=== PATIENT | female | born 1995 | race Caucasian/White ===

== ENCOUNTER 2023-10-28 02:42 | Emergency (ER) | payer OTHER, SELFPAY ==
[2023-10-28 02:49] VITALS: BP 106/72; PULSE 75; RESP 16; TEMP 37; O2SAT 99; BMI 25.8
--- NOTE | 2023-10-28 03:08 | ED_ITS ---
HPI - General Adult General Chief complaint: Headache/Migraine Stated complaint: Headache Time Seen by Provider: 10/28/23 02:45 Source: patient Mode of arrival: ambulatory Limitations: no limitations History of Present Illness HPI narrative: 28-year-old female presents to the emergency department for evaluation of headache with nausea and vomiting. Headache started about a day and half ago, frontal, gradual onset, evolved over about an hour or so. Initially tried taking some ibuprofen which helped for quite a while, but headache returned. Tried some Tylenol and improved somewhat. Over the last few hours, has evolved to nausea and then vomiting. Vomited at home and did have some leftover Zofran, tried taking that but is still retching. Headache is still in the frontal area, radiates into the right eye somewhat. No trauma or injury. No vision changes but does have some photophobia. No focal neurological changes, history of seizures, anticoagulant use. No neurological changes otherwise, numbness, tingling. Triage notes reviewed. No prior history of migraines, gets a few headaches per year but typically will go away with Tylenol and/or ibuprofen. No pertinent travel, no fever, neck stiffness or myalgias. Past medical history notable for anxiety, only home medication is fluoxetine, no recent dose adjustments. No known drug allergies. Nonsmoker. ROS notable for the HEENT symptoms as described above only, otherwise denies times 12 systems. Related Data Home Medications ?Medication ?Instructions ?Recorded ?Confirmed fluoxetine .ROUTE 10/28/23 Allergies Allergy/AdvReac Type Severity Reaction Status Date / Time No Known Drug Allergies Allergy Verified 10/28/23 02:53 [facility] Social History Smoking Status: Never smoker Non-prescribed substance use: denies use Exam Const: Vital Signs, click to edit/add: Vital Signs - 24 hr 10/28/23 02:49 Temperature 98.6 F Pulse Rate [Pulse Oximeter] 75 Respiratory Rate 16 Blood Pressure [Ri ght Upper Arm] 106/72 Pulse Oximetry 99 Oxygen Delivery Me thod Room Air Documenting provider has reviewed patient's vital signs: yes Common n ormals: no apparent distress General appearance: cooperative and well kempt HENMT: Common normals: normocephalic, TM's normal bilaterally, moist oral mucous membranes, oropharynx normal and dentition normal Head and scalp: normocephalic Face and sinus: normal facial exam Tympanic membrane: TM's normal bilaterally Throat: posterior oropharynx normal Eye: Common normals: PERRL, EOMs intact bilaterally and no papilledema Pupil: PERRL Direct Ophthalmoscopy: no papilledema Neck & C-Spine: Common normals: full ROM, no lymphadenopathy and no meningeal signs Resp: Common normals: normal respiratory effort, no use of accessory muscles and clear to auscultation bilaterally Effort & inspection: able to speak in complete sentences Auscultation: clear to auscultation bilaterally Cardio: Common normals: regular rate, regular rhythm, S1 normal heart sound, S2 normal heart sound and no murmurs Rate: regular rate Rhythm: regular rhythm Heart sounds: S1 normal and S2 normal Extremity: Common normals: normal to inspection Neuro: Common normals: CN's II-XII intact bilaterally, moves all extremities and no focal motor deficits Meningeal signs: no meningeal signs Speech: speech normal Psych: Appearance: well kempt Attitude: engaged Activity/motor behavior: appropriate eye contact Insight: insight good Judgement: judgment good Skin: Common normals: no rashes or lesions noted General skin exam: no rashes or lesions noted Course Course ED Course: 28-year-old female with features of common migraine. No red flags for intracranial hemorrhage, meningitis, seizure, stroke or other major intracranial abnormality. Recommend 1 L normal saline, 15 Toradol, 10 Reglan, 25 Benadryl. Will then reassess. Counseled patient that headache will likely not go away completely but should be somewhat better with these medications and often will then resolve over another few hours at home with rest. Do not recommend blood work or imaging based on benign exam and history. She was agreeable to this, await clinical response. Reevaluation(s) Time of Reevaluation #1: 03:59 Reevaluation #1: Headache mostly gone and nausea completely resolved after interventions above. Patient feels like she could go home and rest. No other new features reported. Discussed Tylenol and ibuprofen to continue through today, rest, fluids. Alarm symptoms reviewed that would warrant ED presentation, she verbalizes understand ing and agreement of plan. Follow-up with primary care if recurrent episodes for discussion of long-term management plan. Vital Signs Vital signs: Initial Vital Signs Temperature 98.6 F 10/28/23 02:49 Temperature Source Temporal Artery Scan 10/28/23 02:49 Pulse Rate 75 10/28/23 02:49 Respiratory Rate 16 10/28/23 02:49 Blood Pressure 106/72 10/28/23 02:49 Blood Pressure Mean 83 10/28/23 02:49 Blood Pressure Position Sitting 10/28/23 02:49 Pulse Oximetry 99 10/28/23 02:49 Oxygen Delivery Method Room Air 10/28/23 02:49 Vital Signs Temperature 98.6 F 10/28/23 02:49 Pulse Rate 75 10/28/23 02:49 Respiratory Rate 16 10/28/23 02:49 Blood Pressure 106/72 10/28/23 02:49 Pulse Oximetry 99 10/28/23 02:49 Oxygen Delivery Method Room Air 10/28/23 02:49 Temperature 98.6 F 10/28/23 02:49 Pulse Rate 75 10/28/23 02:49 Respiratory Rate 16 10/28/23 02:49 Blood Pressure 106/72 10/28/23 02:49 Pulse Oximetry 99 10/28/23 02:49 Oxygen Delivery Method Room Air 10/28/23 02:49 Medications Administered Medications: Generic Name Dose Route Start Last Admin Trade Name Freq PRN Reason Stop Dose Admin Sodium Chloride 1,000 mls @ 1,000 mls/hr 10/28/23 03:05 10/28/23 03:40 0.9 % Sodium Chloride 1000 Ml IV 10/28/23 04:04 1,000 mls/hr .Q1H DEANA Administration Metoclopramide HCl 10 mg/ 102 mls @ 306 mls/hr 10/28/23 03:05 10/28/23 03:40 Sodium Chloride IVPB 10/28/23 03:06 306 mls/hr ONCE ONE Administration Diphenhydramine HCl 25 mg/ 100.5 mls @ 402 mls/hr 10/28/23 03:05 10/28/23 03:40 Sodium Chloride IVPB 10/28/23 03:06 402 mls/hr ONCE ONE Administration Ketorolac Tromethamine 15 mg 10/28/23 03:05 10/28/23 03:40 Ketorolac 15 Mg/Ml Inj IVP 10/28/23 03:06 15 mg ONCE ONE Administration Discharge Plan Discharge Clinical Impression: Migraine Patient Disposition: Home w/ Parent or Adult Condition: Improved Instructions: Migraine Headache (ED) Additional Instructions: I am glad that things are improving after medications. You are due for your next dose of Tylenol at 7:30 a.m. in the morning. You are eligible for more ibuprofen at 9:00 a.m.. Continue these medications throughout the next 24 hours to prevent rebound headache. Try to rest this morning and get moderate amount of fluids and try to emphasize salty foods throughout today. It is okay to repeat the Zofran later this morning if needed, but will likely not be necessary. Come back to the emergency department if you are unable to hold down liquids for over 24 hours, have high fever, neck stiffness or other neurological changes associated with a headache. Activity Level: Activity as Tolerated Discharge Diet: Regular Prescriptions: No Action fluoxetine .ROUTE Stand Alone Forms: MyHealth Info Instructions
--- OUTSIDE RECORDS SUMMARY | 2023-10-28 03:38 | XMS_ITS | Clinical Summary ---
Author Organization [place] Address [address] [place] [id number] Care Team Providers Care Toaster Element Repairer Name Role Phone No Ref-Primary, Physician Primary Care Provider Amelia Crump CNM Unavailable [phone] Allergies Active Allergy Reactions Criticality Noted Date Comments Nuts Hives,Itching 09/15/2012 Annotation: tree nuts cause throat swelling Nuts Hives,Itching,Shortn ess Of Breath High 11/04/2014 Medications Medication Sig Dispensed Refills Start Date End Date Status FLUoxetine (PROZAC) 20 MG capsuleIndications:Mix ed anxiety and depressive disorder Take 1 capsule (20 mg) by mouth daily 90 capsule 3 03/06/2023 Active levonorgestrel-ethinyl estradiol (AVIANE) 0.1-20 MG-MCG tabletIndications:Enco unter for initial prescription of contraceptive pills Take 1 tablet by mouth daily 84 tablet 3 10/20/2023 Active Active Problems Problem Noted Date Diagnosed Date Indication for care in labor or delivery 023 Depression during , antepartum 02/26/20 22 Overview: - Stable on Wellbutrin x5 yrs - Does not see a therapist Encounter for supervision of normal first in first trimester 02/25/2022 Overview: Clinic/Hospital: [facility] Partner Name: [facility] Ultrasound predicts sex: Childrens names/ages: Previous labor experiences: Waterbirth (interest, declined, ineligible): Level of education/occupation: TEMPLE MEAT CUTTER at [employer] Pertinent History: PP contraception: Hx PPD/Depression/Anxiety: yes, depression, stable on Wellbutrin x5yrs Ed: Plans for labor pain management: Planning to use pain interventions as needed, would like to avoid epidural. 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 Hematuria Overview: Created by Conversion Created by Conversion Resolved Problems Problem Noted Date Diagnosed Date Resolved Date Major depression, single episode 01/22/2019 06/06/2022 Overview: Created by Conversion Created by Conversion Created by Conversion Created by Conversion Created by Conversion Sore Throat 06/06/2022 Overview: Created by Conversion Encounters Date Type Department Care Team Description 10/20/2023 [facility] [address] [address] Crump, Amelia A, CNM Encounter for initial prescription of contraceptive pills (Primary Dx) from Last 3 Months Immunizations Name Administration Dates Next Due COVID-19 MONOVALENT 12+ (Pfizer) 01/01/2021,03/25,03/29/2020 DTaP, Unspecified 04/16/1999, 6,1994,10/22,1994 Flu, Unspecified 01/06/2020, 9,12/26/2014,04/30 [id number] Novel Flu 01/05/2021 HIB, Unspecified 12/16/1995, 5,1994,08/13 HPV Quadrivalent 09/04/2009,12/08/2007, 7 HPV9 09/04/2009,12/08/2007,10/29/2006 HepA, Unspecified 12/08/2007,10/29/2006 HepB, Unspecified 02/01/1998,08/17/1997,07/11/18 98 Influenza Vaccine >6 months,quad, PF 12/26/2021, 12/20/2020,01/06/2020 Influenza Vaccine, 6+MO IM (QUADRIVALENT W/PRESERVATIVES) 12/25/2018 Influenza, seasonal, injectable, PF 12/26/2014 MMR 09/23/1995 MMR/V 10/29/2006 Mantoux Tuberculin Skin Test 11/16/2015,11/05/19 15 Meningococcal ACWY (Menactra??) 04/30/2011 Poliovirus, inactivated (IPV) 04/16/1999 ,1994,1994,08/13 TDAP (Adacel,Boostrix) 06/27/2022,2017,10/29/2006,04/16,12/16/1995,1994,1994 ,1994 Td,adult,historic,unspecified 10/29/2006 Varicella 06/22/1996 Family History Medical History Relation Comments No Known Problems Brother Asthma Father Depression Father Kidney Disease Father Diabetes Maternal Grandfather No Known Problems Mother Hypertension Other family history o f this Depression Paternal Aunt several Depression Paternal Grandfather Brain Cancer Paternal Grandmother Depression Sister 1 Depression Sister 2 Relation Status Comments Brother Alive Father Alive Maternal Grandfather Maternal Grandmother Mother Alive Other Paternal Aunt Paternal Grandfather Paternal Grandmother Sister 1 Alive Sister 2 Alive Social History Tobacco Use Types Packs/Day Years Used Date Smoking Tobacco: Never Smokeless Tobacco: Never Tobacco Cessation:Counseling Given: No Alcohol Use Standard Drinks/Week Comments Not Currently 0 (1 standard drink = 0.6 oz pure alcohol) Alcoholic Drinks/day: occasionally once a month PHQ-2 Answer Date Recorded PHQ-2 Score 0 05/03/2022 [place] Depression Scale Answer Date Recorded [place] Depression Scale Total 2 11/04/2022 The thought of harming myself has occurred to me . Never 11/04/2022 Adolescent Education Answer Date Record ed Getting School Help Needed Not on file 12/14 Sex and Gender Information Value Date Recorded Sex Assigned at Female 01/08/2022 9:21 AM CDT Gender Identity Female 01/08/2022 9:21 AM CDT Sexual Orientation Straight 01/08/2022 9: 21 AM CDT Last Filed Vital Signs Vital Sign Reading Time Taken Comments Blood Pressure 108/62 11/04/2022 8:04 AM CDT Pulse 87 09/21/2022 4:35 PM CDT Temperature 36.9 ??C (98.5 ??F) 09/21/2022 4:35 PM CD T Respiratory Rate 16 09/21/2022 4:35 PM CDT Oxygen Saturation 100% 09/20/2022 5:00 PM CDT Inhaled Oxygen Concentration - - Weight 76.7 kg (169 lb) 11/04/2022 8:04 AM CDT Height 170.2 cm (5' 7) 09/20/2022 7:47 AM CDT Body Mass Index 26.47 09/20/2022 7:47 AM CDT Plan of Treatment Health Maintenance Due Date Last Done Comments ADVANCE CARE PLANNING 1994 ANNUAL REVIEW OF HM ORDERS 1994 DEPRESSION ACTION PLAN 1994 PHQ-9 03/08/2020 09/07/2019 YEARLY PREVENTIVE VISIT 03/21/2022 03/21/20 21, 03/21/2020, 01/22/2019, Additional history exists COVID-19 Vaccine ( season) 2022 01/01/2021, 04/19/2020, 03/29/2020 INFLUENZA VACCINE (#1) 2023 , 12/26/2021, 01/05/2021, Additional history exists PAP 11/04/2025 11/04/2022, 02/22, 10/22/2016, Additional history exists DTAP/TDAP/TD IMMUNIZATION (10 - Td or Tdap) 06/27/2032 06/27/2022, 06/22/2017, 10/29/2006, Additional history exists HEPATITIS B IMMUNIZATION Completed 998, 08/17/1997, 07/11/1997 IPV IMMUNIZATION Completed 04/16/1999, , 1994, Additional history exists HPV IMMUNIZATION Completed 09/04/2009, , 12/08/2007, Additional history exists MENINGITIS IMMUNIZATION Completed 04/30/2011 HEPATITIS C SCREENING Completed 02/18/2022 HIV SCREENING Completed 02/18/2022, 12/23, 06/07/2013 Pneumococcal Vaccine: Pediatrics (0 to 5 Years) and At-Risk Patients (6 to 64 Years) Aged Out No longer eligible based on patient's age to complete this topic RSV MONOCLONAL ANTIBODY Aged Out No l onger eligible based on patient's age to complete this topic Procedures Procedure Name Priority Date/Time Associated Diagnosis Comments GYNECOLOGIC CYTOLOGY Routine 11/04/2022 8:31 AM CDT Screening for cervical cancer HIV ANTIGEN ANTIBODY COMBO Routine 02/18/2022 2:19 PM STORE CLERK Supervision of normal first HEPATITIS C ANTIBODY Routine 02/18/2022 2:19 PM STORE CLERK Supervision of normal first from Last 3 Months or Most Recently Relevant to Health Maintenance Results * Pap screen reflex to HPV if ASCUS - recommend age 25 - 29 (11/04/2022 8:31 AM CDT) Interpretation Negative for Intraepithelial Lesion or Malignancy (NILM) 11/07/2022 3:06 PM CDT [facility] Comment Papanicolaou Test Limitations: Cervical cytology is a screening test with limited sensitivity, and regular screening is critical for cancer prevention. Pap tests are primarily effective for the diagnosis/prevent ion of squamous cell carcinoma, not adenocarcinoma or other cancers. 11/07/2022 3:06 PM [facility]T [facility] Specimen Adequacy Satisfactory for evaluation, endocervical/zepeda sformation zone component present 11/07/2022 3:06 PM CDT [facility] Clinical Information none 11/07/2022 3:06 PM CDT [facility] Reflex Testing Yes if ASCUS 11/08/19 3:06 PM CDT [facility] Previous Abnormal? No 11/07/2022 3:06 PM CDT [facility] Performing Labs The technical component of this testing was completed at [facility] 11/07/2022 3:06 PM CDT [facility] Brushing CERVIX UTERI STRUCTURE / Unknown Non-blood Collection / Unknown 11/04/2022 8:31 AM CDT 11/04/2022 9:08 AM CDT Amelia [facility] Specialty Lab [address] [facility], [address] [address], [facility] [phone] * HIV Antigen Antibody Combo (02/18/2022 2:19 PM STORE CLERK) HIV Antigen Antibody Combo Nonreactive Nonreactive 02/18/2022 8:20 PM STORE CLERK SPECIALTY CORE/PROT/EN DO Comment:HIV-1 p24 Ag & HIV-1 /HIV-2 Ab Not Detected Blood STRUCTURE OF LEFT UPPER LIMB / Unknown Venipuncture / Unknown 02/18/2022 2:19 PM STORE CLERK 02/18/2022 2:19 PM STORE CLERK Amelia Crump CNM LAB - BLOOD ORDERABL ES SPECIALTY CORE/PROT/ENDO Specialty Core/Prot/Endo [address] [facility] Building, Room [address] [phone] * Hepatitis C antibody (02/18/2022 2:19 PM STORE CLERK) Hepatitis C Antibody Nonreactive Nonreactive 02/18/2022 8:20 PM STORE CLERK SPECIALTY CORE/PROT/EN DO Blood STRUCTURE OF LEFT UPPER LIMB / Unknown Venipuncture / Unknown 02/18/2022 2:19 PM STORE CLERK 02/18/2022 2:19 PM STORE CLERK Narrative [facility] - 02/18/2022 8:20 PM STORE CLERK Assay performance characteristics have not been established for newborns, infants, and children. Amelia Crump CNM LAB - BLOOD ORDERABL ES [facility]PROT/ENDO Specialty Core/Prot/Endo [address] [facility] [address] [facility], Room [address] [place] [address] from Last 3 Months or Most Recently Relevant to Health Maintenance Advance Directives For more information, please contact: [phone] * Full Code (Latest Code Status on File) Date Activated Date Inactivated Comments 09/20/2022 8:23 AM 09/21/2022 11:21 PM All basic an d advanced life-sustaining interventions are performed as appropriate Question Answer Comments Code status determined by: Discussion with david pelayo/ legal decision maker Care Teams Toaster Element Repairer Relationship Specialty Start Date End Date No Ref-Primary, Physician PCP - General 03/28/22 Amelia Crump CNM [address] [place] [address] Assigned OBGYN Provider 11/30/22
--- OUTSIDE RECORDS SUMMARY | 2023-10-28 03:39 | XMS_ITS | Referral Summary ---
Author Organization [place] Address [address] [place] [address]. [place] [address] Care Team Providers Care Can Machine Operator Name Role Phone No Ref-Primary, Physician Primary Care Provider Amelia CrumpM Unavailable [phone] Encounters Date Type Department Care Team Description 10/20/2023 [facility] [address] [address] Amelia Crump CNM Encounter for initial prescription of contraceptive pills (Primary Dx) from Last 3 Months Allergies Active Allergy Reactions Criticality Noted Date [...] first in first trimester 02/25/2022 Overview: Clinic/Hospital: [facility] Partner Name: [facility] Ultrasound predicts sex: Childrens names/ages: Previous labor experiences: Waterbirth (interest, declined, ineligible): Level of education/occupation: COMPUTER AIDED DRAFTER at [employer] Pertinent History: PP contraception: Hx PPD/Depression/Anxiety: yes, [...] Sore Throat 06/06/2022 Overview: Created by Conversion Immunizations Name Administration Dates Next Due COVID-19 MONOVALENT 12+ (Pfizer) 01/01/2021,03/25,03/29/2020 DTaP, Unspecified 04/16/1999, 6,1994,10/22,1994 Flu, Unspecified 01/06/2020, 9,12/26/2014,04/30 [id number] Novel Flu 01/05/2021 HIB, Unspecified 12/16/1995, 5,1994,08/13 [...] (Adacel,Boostrix) 06/27/2022,2017,10/29/2006,04/16,12/16/1995,1994,1994 ,1994 Td,adult,historic,unspecified 10/29/2006 Varicella 06/22/1996 Social History Tobacco Use Types Packs/Day Years Used Date Smoking Tobacco: Never Smokeless Tobacco: Never Tobacco Cessation:Counseling Given: No Alcohol Use Standard Drinks/Week Comments Not Currently 0 (1 standard drink = 0.6 oz pure alcohol) Alcoholic Drinks/day: occasionally once a month PHQ-2 Answer Date Recorded PHQ-2 Score 0 05/03/2022 [place] Depression Scale Answer Date Recorded [place] Depression Scale Total 2 11/04/2022 The thought [...] 09/20/2022 7:47 AM CDT Plan of Treatment Not on file Procedures Procedure Name Priority Date/Time Associated Diagnosis Comments GYNECOLOGIC CYTOLOGY Routine 11/04/2022 8:31 AM CDT Screening for cervical cancer HIV ANTIGEN ANTIBODY COMBO Routine 02/18/2022 2:19 PM ASPARAGUS CUTTER Supervision of normal first HEPATITIS C ANTIBODY Routine 02/18/2022 2:19 PM ASPARAGUS CUTTER Supervision of normal first from Last 3 Months or Most Recently Relevant to Health Maintenance Results * Pap screen reflex to HPV if ASCUS - recommend age 25 - 29 (11/04/2022 8:31 AM CDT) Interpretation Negative for Intraepithelial Lesion or Malignancy (NILM) 11/07/2022 3:06 PM CDT [facility] Comment Papanicolaou Test Limitations: Cervical [...] Yes if ASCUS 11/08/19 3:06 PM CDT [facility] Previous Abnormal? No 11/07/2022 3:06 PM CDT [facility] Performing Labs The technical component of this testing was completed at [facility] 11/07/2022 3:06 PM CDT [facility] Brushing CERVIX UTERI STRUCTURE / Unknown Non-blood Collection / Unknown 11/04/2022 8:31 AM CDT 11/04/2022 9:08 AM CDT Amelia Crump CNM LAB - [facility] Specialty Lab [address] [facility], Room [address] [place] [id number], [facility] [phone] * HIV Antigen Antibody Combo (02/18/2022 2:19 PM ASPARAGUS CUTTER) HIV Antigen Antibody Combo Nonreactive Nonreactive 02/18/2022 8:20 PM ASPARAGUS CUTTER SPECIALTY CORE/PROT/EN DO Comment:HIV-1 p24 Ag & HIV-1 /HIV-2 Ab Not Detected Blood STRUCTURE OF LEFT UPPER LIMB / Unknown Venipuncture / Unknown 02/18/2022 2:19 PM ASPARAGUS CUTTER 02/18/2022 2:19 PM ASPARAGUS CUTTER Amelia Crump CNM LAB - BLOOD ORDERABL ES SPECIALTY CORE/PROT/ENDO [facility]/Prot/Endo [address] [facility] [address] Building, Room 3[address] [phone] * Hepatitis C antibody (02/18/2022 2:19 PM ASPARAGUS CUTTER) Hepatitis C Antibody Nonreactive Nonreactive 02/18/2022 8:20 PM ASPARAGUS CUTTER [facility]PROT/EN DO Blood STRUCTURE OF LEFT UPPER LIMB / Unknown Venipuncture / Unknown 02/18/2022 2:19 PM ASPARAGUS CUTTER 02/18/2022 2:19 PM ASPARAGUS CUTTER Narrative [facility]END[facility] - 02/18/2022 8:20 PM ASPARAGUS CUTTER Assay performance characteristics have not been established for newborns, infants, and children. Amelia Crump CNM LAB - BLOOD ORDERABL ES [facility]/PROT/ENDO Specialty Core/Prot/Endo [address] [facility] [address] [facility], [address] [phone] from Last 3 Months or Most Recently Relevant to Health Maintenance Advance Directives For more information, please contact: [phone] * Full Code (Latest Code Status on File) Date Activated Date Inactivated Comments 09/20/2022 8:23 AM 09/21/2022 11:21 PM All basic an d advanced life-sustaining interventions are performed as appropriate Question Answer Comments Code status determined by: Discussion with david pelayo/ legal decision maker Care Teams Can Machine Operator Relationship Specialty Start Date End Date No Ref-Primary, Physician PCP - General 03/28/22 Amelia Crump CNM [address] [place] [address] Assigned OBGYN Provider 11/30/22
--- OUTSIDE RECORDS SUMMARY | 2023-10-28 03:39 | XMS_ITS | Encounter Summary ---
Author Organization [place] Address [address] [place] [address] Care Team Providers Care Professor Of History Name Role Phone Suha Wong MD Unavailable Unavailab Amelia Mullen CNM Unavailable [phone] Ref-Primary, Physician Primary Care Provider Catie Man CNM Unavailable Amelia CrumpM Unavailable [phone] Encounter Details Date Type Department Care Team (Late st Contact Info) Description 03/18/2022 MyC Medical Advice [facility] [address], [address] [place] [address] Amelia Crump [facility] [address] [place] [address] Social History Tobacco Use Types Packs/Day Years Used Date Smoking Tobacco: Never Smokeless Tobacco: Never Alcohol Use Standard Drinks/Week Comments Not Currently 0 (1 standard drink = 0.6 oz pure alcohol) Alcoholic Drinks/day: occasionally once a month PHQ-2 Answer Date Recorded PHQ-2 Score 0 01/31/2022 Comments Yes Sex and Gender Information Value Date Recorded Sex Assigned at Female 01/08/2022 9:21 AM CDT Gender Identity Female 01/08/2022 9:21 AM CDT Sexual Orientation Straight 01/08/2022 9: 21 AM CDT COVID-19 Exposure Response Date Recorded In the last 10 days, have yo u been in contact with someone who was confirmed or suspected to have Coronavirus/COVID-19? No / Unsure 02/25/2022 2:15 PM HERBOLOGIST documented as of this encounter Miscellaneous Notes * Telephone Encounter - Mayuri Villatoro RN - 03/18/2022 9:57 AM CST Please see my chart message and advise. Pharmacy selected. Mayuri Villatoro RN OLOGIST documented in this encounter Plan of Treatment Not on file documented as of this encounter Visit Diagnoses Not on filedocumented in this encounter Additional Health Concerns Assessment Noted Time PHQ-9 Depression Total Score: 0 08/18/19 3:38 AM CDT documented as of this encounter Care Teams Professor Of History Relationship Specialty Start Date End Date No Ref-Primary, Physician PCP - General 03/28/22 Suha Wong MD Assigned PCP 09/06/20 09/06/22 Amelia Crump CNM [address] [place] [address] Assigned OBGYN Provider 03/02/22 Catie Man CNM [address] [place] [address] Assigned OBGYN Provider 04/13/22 3 Amelia Crump CNM [address] [place] [address] Assigned OBGYN Provider 11/30/22 documented as of this encounter
--- OUTSIDE RECORDS SUMMARY | 2023-10-28 03:39 | XMS_ITS | Encounter Summary ---
Author Organization [place] Address [address] [place] [address] Care Team Providers Care Sulky Driver Name Role Phone Suha Wong MD Unavailable Unavailab Suha Archuleta MD Primary Care Provider Manisha vailable Amelia Crump CNM Unavailable [phone] Ref-Primary, Physician Primary Care Provider Catie Man CNM Unavailable [phone] Amelia Crump CNM Unavailable [phone] Encounter Details Date Type Department Care Team (Late st Contact Info) Description 08/21/2016 Records - [facility] CONVERSION Scan, Non-Provider Social History Tobacco Use Types Packs/Day Years Used Date Smoking Tobacco: Never Assessed Sex and Gender Information Value Date Recorded Sex Assigned at Female 01/08/2022 9:21 AM CDT Gender Identity Female 01/08/2022 9:21 AM CDT Sexual Orientation Straight 01/08/2022 9: 21 AM CDT documented as of this encounter Plan of Treatment Not on file documented as of this encounter Visit Diagnoses Not on filedocumented in this encounter Care Teams Sulky Driver Relationship Specialty Start Date End Date Suha Wong MD PCP - General Family Practice 10/29/06 03/12/22 No Ref-Primary, Physician PCP - General 03/28/22 Suha Wong MD Assigned PCP 09/06/20 09/06/22 Amelia Crump CNM [address] [place] [address] Assigned OBGYN Provider 03/02/22 Catie Man CNM [address] [place] [address] Assigned OBGYN Provider 04/13/22 3 Amelia Crump CNM [address] [place] [address] Assigned OBGYN Provider 11/30/22 documented as of this encounter
--- OUTSIDE RECORDS SUMMARY | 2023-10-28 03:39 | XMS_ITS | Encounter Summary ---
Author Organization [place] Address [address] [place] [address] Care Team Providers Care Dairy Technician Name Role Phone No Ref-Primary, Physician Primary Care Provider Catie Man CNM Unavailable [phone] Amelia Crump CNM Unavailable [phone] Encounter Details Date Type Department Care Team (Late st Contact Info) Description 09/17/[address] [facility] [address], [address] [place] [phone] Yanelis Bejarano APRN [address] [address] Social History Tobacco Use Types Packs/Day Years Used Date Smoking Tobacco: Never Smokeless Tobacco: Never Alcohol Use Standard Drinks/Week Comments Not Currently 0 (1 standard drink = 0.6 oz pure alcohol) Alcoholic Drinks/day: occasionally once a month PHQ-2 Answer Date Recorded PHQ-2 Score 0 05/03/2022 [place] Depression Scale Answer Date Recorded Last EPDS Total Score Not on file 09/21/2022 The thought of harming myself has occurred to me . Never 09/21/2022 Comments Yes Sex and Gender Information Value Date Recorded Sex Assigned at Female 01/08/2022 9:21 AM CDT Gender Identity Female 01/08/2022 9:21 AM CDT Sexual Orientation Straight 01/08/2022 9: 21 AM CDT COVID-19 Exposure Response Date Recorded In the last 10 days, have yo u been in contact with someone who was confirmed or suspected to have Coronavirus/COVID-19? No / Unsure 09/20/2022 7:44 AM CDT documented as of this encounter Plan of Treatment Not on file documented as of this encounter Visit Diagnoses Not on filedocumented in this encounter Additional Health Concerns Assessment Noted Time PHQ-9 Depression Total Score: 0 08/18/19 21 3:38 AM CDT documented as of this encounter Care Teams Dairy Technician Relationship Specialty Start Date End Date No Ref-Primary, Physician PCP - General 03/28/22 Catie Man CNM [address] [place] [address] Assigned OBGYN Provider 04/13/22 3 Amelia Crump CNM [address] [place] [address] Assigned OBGYN Provider 11/30/22 documented as of this encounter
--- OUTSIDE RECORDS SUMMARY | 2023-10-28 03:39 | XMS_ITS | Encounter Summary ---
Author Organization [place] Address [address] [place] [address] Care Team Providers Care Automotive Parts Interpreter Name Role Phone Suha Wong MD Unavailable Unavailab Suha Archuleta MD Primary Care Provider Manisha vailable Amelia Crump CNM Unavailable [phone] Ref-Primary, Physician Primary Care Provider Catie Man CNM Unavailable Amelia Crump CNM Unavailable [phone] Encounter Details Date Type Department Care Team (Late st Contact Info) Description 08/21/2016 Records - [address] [place] [phone] Suha Wong MD Social History Tobacco Use Types Packs/Day Years Used Date Smoking Tobacco: Never Assessed Sex and Gender Information Value Date Recorded Sex Assigned at Female 01/08/2022 9:21 AM CDT Gender Identity Female 01/08/2022 9:21 AM CDT Sexual Orientation Straight 01/08/2022 9: 21 AM CDT documented as of this encounter Progress Notes * Suha Wong MD - 08/21/2016 2:40 PM CDT Patient came in today for physical exam however it is too early for her to get a physical exam as her last one was on 09/15/2015. She otherwise is doing well and has no concerns. We rescheduled her physical exam to 10/22/2016. We will see her at that time. Today's visit will be no charge. This encounter was created in error - please disregard. documented in this encounter Plan of Treatment Not on file documented as of this encounter Visit Diagnoses Not on filedocumented in this encounter Care Teams Automotive Parts Interpreter Relationship Specialty Start Date End Date Suha Wong MD PCP - General Family Practice 10/29/06 03/12/22 No Ref-Primary, Physician PCP - General 03/28/22 Suha Wong MD Assigned PCP 09/06/20 09/06/22 Amelia Crump CNM [address] [place] [address] Assigned OBGYN Provider 03/02/22 Catie Man CNM [address] [place] [address] Assigned OBGYN Provider 04/13/22 3 Amelia Crump CNM [address] [place] [address] Assigned OBGYN Provider 11/30/22 documented as of this encounter
--- OUTSIDE RECORDS SUMMARY | 2023-10-28 03:39 | XMS_ITS | Encounter Summary ---
Author Organization [facility] Address [address] [place] [address] Care Team Providers Care Classroom Instructional Aide Name Role Phone Suha Wong MD Unavailable Unavailab Suha Archuleta MD Primary Care Provider Manisha vailable Amelia Crump CNM Unavailable [phone] Ref-Primary, Physician Primary Care Provider Catie Man CNM Unavailable Amelia Crump CNM Unavailable [phone] Encounter Details Date Type Department Care Team (Late st Contact Info) Description 01/29/2022 [facility] [place] [address] [place] [phone] Tabitha Ivey, RN Social History Tobacco Use Types Packs/Day Years Used Date Smoking Tobacco: Never Smokeless Tobacco: Never Alcohol Use Standard Drinks/Week Comments Yes 0 (1 standard drink = 0.6 oz pure alcohol) Alcoholic Drinks/day: occasionally once a month PHQ-2 Answer Date Recorded PHQ-2 Score 0 01/31/2022 Sex and Gender Information Value Date Recorded Sex Assigned at Female 01/08/2022 9:21 AM CDT Gender Identity Female 01/08/2022 9:21 AM CDT Sexual Orientation Straight 01/08/2022 9: 21 AM CDT COVID-19 Exposure Response Date Recorded In the last 10 days, have yo u been in contact with someone who was confirmed or suspected to have Coronavirus/COVID-19? Unable to assess 01/31/2022 12: 55 PM SALES ATTENDANT documented as of this encounter Plan of Treatment Not on file documented as of this encounter Visit Diagnoses Not on filedocumented in this encounter Additional Health Concerns Assessment Noted Time PHQ-9 Depression Total Score: 0 08/18/19 3:38 AM CDT documented as of this encounter Care Teams Classroom Instructional Aide Relationship Specialty Start Date End Date Suha Wong MD PCP - General Family Practice 10/29/06 03/12/22 No Ref-Primary, Physician PCP - General 03/28/22 Suha Wong MD Assigned PCP 09/06/20 09/06/22 Amelia Crump CNM [address] [place] [address] Assigned OBGYN Provider 03/02/22 Catie Man CNM [address] [place] [address] Assigned OBGYN Provider 04/13/22 3 Amelia Crump CNM [address] [place] [address] Assigned OBGYN Provider 11/30/22 documented as of this encounter
--- OUTSIDE RECORDS SUMMARY | 2023-10-28 03:39 | XMS_ITS | Encounter Summary ---
Author Organization [facility] Address [address] [place] [address]. [place] [address] Care Team Providers Care Deep Well Contractor Name Role Phone No Ref-Primary, Physician Primary Care Provider Amelia CrumpM Unavailable [phone] Encounter Details Date Type Department Care Team (Late st Contact Info) Description 10/20/2023 [facility] [place] [facility] [place] [address] [address] Amelia Crump CNM [address] [place] [address] Encounter for initial prescription of contraceptive pills (Primary Dx) Social History Tobacco Use Types Packs/Day Years Used Date Smoking Tobacco: Never Smokeless Tobacco: Never Alcohol Use Standard Drinks/Week Comments Not Currently 0 (1 standard drink = 0.6 oz pure alcohol) Alcoholic Drinks/day: occasionally once a month PHQ-2 Answer Date Recorded PHQ-2 Score 0 05/03/2022 [place] Depression Scale Answer Date Recorded [place] Depression Scale Total 2 11/04/2022 The thought [...] AM CDT documented as of this encounter Miscellaneous Notes * Telephone Encounter - Arely Knowles APRN CNM - 10/20/2023 2:10 PM CDT Rx for OCP given. Arely Knowles CNM, SONYA PATIÑO documented in this encounter Plan of Treatment Not on file documented as of this encounter Visit Diagnoses Diagnosis Encounter for initial prescription of contraceptive pills- Primary General counseling for prescription of oral contraceptives documented in this encounter Additional Health Concerns Assessment Noted Time PHQ-9 Depression Total Score: 0 08/18/19 21 3:38 AM CDT documented as of this encounter Care Teams Deep Well Contractor Relationship Specialty Start Date End Date No Ref-Primary, Physician PCP - General 03/28/22 Amelia Crump CNM [address] [place] [address] Assigned OBGYN Provider 11/30/22 documented as of this encounter
--- OUTSIDE RECORDS SUMMARY | 2023-10-28 03:39 | XMS_ITS | Continuity of Care Document ---
Author Name [facility] Organization [facility] Care Team Providers Care Manager Construction Name Role Phone [facility] Unavailable Unavailable Encounters Combined list of: 1) Encounters from Department of Veterans Affairs facilities going back up to thelast 18 months. 2) Encounters from the Department of Defense facilities going back up to 280 months. Location Location Details Encounter Type Encounter Number Reason For Visit Attending Provider ADM Date DC Date Status Disposition Source [facility](PEDRO C Post Immunizat ion) OUTPATIENT [id number] Notes Entered by: Lulu CARMONA 14 Sep 2013 0630 ------- ------- ------- ------- -- iet ppd BRENDA DIXON 09/14 Released w/o Limitations [facility](M [facility] Post Immuniz ation) [facility](PES Optometry -Trainee) OUTPATIENT [id number] CHUY DALEY 09/14 Released w/o Limitations [facility](P ES Optomet ry-Andre nee) Procedures Combined list of: 1) Procedures from Department of Veterans Affairs facilities going back up to thelast 18 months, not all VA non-surgical procedures are included; 2) All procedures from the Department of Defense facilities. Procedure Procedure Type Code Date Perfomer Comments Lucretia e SCREENING TEST OF VISUAL ACUITY, QUANTITATIVE, BILATERAL 09/14/2013 [facility] EAR MOLD/INSERT, NOT DISPOSABLE, ANY TYPE 09/14/2013 [facility] Screening Test Of Visual Acuity, Quantitative, Bilateral Screening Test Of Visual Acuity, Quantitative, Bilateral [id number] 09/14/2013 CHUY DALEY [facility] Social History Combined list of available smoking, tobacco, and other social history from Department of Defense and Veterans Affairs facilities. Social History Type Response Date Comment Sour e This section is an empty social history section. [facility]
[2023-10-28] MEDS: diphenhydrAMINE 25 MG in 0.9 % SODIUM CHLORIDE 100 ml 100 ML 402 MG IVPB (03:40)
[2023-10-28] MEDS: 0.9 % SODIUM CHLORIDE 1000 ml 1,000 ML IV (03:40)
[2023-10-28] MEDS: METOCLOPRAMIDE HCL 10 MG in 0.9 % SODIUM CHLORIDE 100 ml 100 ML 306 MG IVPB (03:40)
[2023-10-28] MEDS: KETOROLAC 15 MG/ML inj IVP (03:40)
== END 2023-10-28 04:06 | disposition home or self-care (01) ==
LOC: ED 03:37
PROVIDERS: Emergency Provider Family Medicine
DX: G43.909 Migraine, unspecified, not intractable, without status migrainosus (principal)
CPT/HCPCS: 96365; 96366; 96375; 99283; J1200; J1885; J2765; J7030